=== PATIENT | female | born 1975 | race Caucasian/White ===

== ENCOUNTER 2025-01-21 06:23 | Day surgery (SDC) | payer BC ==
[2025-01-21] MEDS ORDERED: Midazolam 1 MG/ML 2 ML SDV ONE (07:13)
[2025-01-21] MEDS ORDERED: Propofol 200 MG/20 ML SDV ONE ×2 (07:13→07:40)
[2025-01-21] MEDS ORDERED: fentaNYL 50 MCG/ML SDV ONE (07:13)
[2025-01-21] MEDS: Lactated Ringers 1,000 ML IV SCH (07:15)
== END 2025-01-21 09:00 | disposition home or self-care (01) ==
LOC: JP.SDS 06:23
PROVIDERS: ATTEND Family Medicine
DX: Z12.11 Encounter for screening for malignant neoplasm of colon (principal); K29.50 Unspecified chronic gastritis without bleeding; R13.10 Dysphagia, unspecified; K64.4 Residual hemorrhoidal skin tags
CPT/HCPCS: 00813-QZ; J2250; J2704; J3010; J7120